=== PATIENT | male | born 1980 | race Caucasian/White ===

== ENCOUNTER 2019-11-26 14:27 | Emergency (ER) | payer OTHER ==
--- NOTE | 2019-11-26 14:49 | TELE ---
HPI Do you have fever,cough or shortness of breath?: Yes - General Reason For Visit: COVID TEST Time Seen by Provider: 11/26/19 14:46 History Source: Patient Exam Limitations: Clinical Condition - History of Present Illness Timing/Duration: unsure 11/26/19 14:46 Patient with no significant past medical history presented [facility] for COVID testing status post being around a group of crowd which had no mask on a few days ago. Patient denies any symptoms himself. Denies cough, fever, shortness of breath. Denies any other symptoms. Patient wants COVID test done as a precautionary Review of Systems - Review of Systems Able to Perform ROS?: Yes Limited Faroese proficient: No Constitutional: No: Chills, Fever, Malaise HEENTM: No: Symptoms Reported, See HPI, Eye Pain, Blurred Vision, Tearing, Recent change in vision, Double Vision, Cataracts, Ear Pain, Ocular Prothesis, Ear Discharge, Nose Pain, Nose Congestion, Tinnitus, Nose Bleeding, Hearing Loss, Throat Pain, Throat Swelling, Mouth Pain, Dental Problems, Difficulty Swallowing, Mouth Swelling, Other Respiratory: No: Symptoms reported, See HPI, Cough, Orthopnea, Shortness of Breath, SOB with Exertion, SOB at Rest, Stridor, Wheezing, Productive cough, Hemoptysis, Other Cardiac (ROS): No: Symptoms Reported, See HPI, Chest Pain, Edema, Irregular Heart Rate, Lightheadedness, Palpitations, Syncope, Chest Tightness, Other ABD/GI: No: Symptoms Reported, Constipated, Diarrhea, Nausea, Vomiting Musculoskeletal: No: Symptoms Reported Integumentary: No: Symptoms Reported, Rash Neurological: No: Symptoms reported, Dizziness All Other Systems: Reviewed and Negative *Physical Exam - Physical Exam General Appearance: Yes: Nourished, Appropriately Dressed. No: Apparent Distress HEENT: positive: Normal ENT Inspection Neck: negative: Supple Respiratory/Chest: negative: Respiratory Distress, Accessory Muscle Use Musculoskeletal: positive: Normal Inspection Extremity: positive: Normal Inspection, Normal Range of Motion Integumentary: positive: Normal Color Neurologic: positive: Fully Oriented, Alert, Normal Mood/Affect, Normal Response, Motor Strength 5/5 - Medical Decision Making 11/26/19 14:47 Patient with no significant past medical history presented to [facility] for COVID testing status post being around a group of crowd which had no mask on a few days ago. Patient denies any symptoms himself. Denies cough, fever, shortness of breath. Denies any other symptoms. Patient wants COVID test done as a precautionary Patient is symptomatic at this time. Discussed with patient self quarantine instructions if symptomatic. COVID tests ordered as per patient's request. Patient to go to [facility] today for testing. Patient stable for discharge Discharge Diagnosis at time of Disposition: Counseled about COVID-19 virus infection - Referrals Follow-up Referral(s): Eva Kohler NP [Primary Care Provider] - - Patient Instructions - Discharge Disposition: HOME Condition at time of Disposition: Stable
== END 2019-11-26 14:49 | disposition home or self-care (01) ==
LOC: JVIRT 14:27
DX: Z03.818 Encounter for observation for suspected exposure to other biological agents ruled out (principal)
CPT/HCPCS: C9803; Q3014-GT; U0003

== ENCOUNTER 2020-01-05 19:59 | Emergency (ER) | payer OTHER | END 2020-01-05 20:35 | disposition home or self-care (01) | LOC: JVIRT 19:59 | DX: Z03.818 Encounter for observation for suspected exposure to other biological agents ruled out (principal) | CPT/HCPCS: C9803; Q3014-GT; U0003 ==

== ENCOUNTER 2020-01-30 11:32 | Emergency (ER) | payer OTHER | END 2020-01-30 11:52 | disposition home or self-care (01) | LOC: JVIRT 11:32 | DX: Z11.59 Encounter for screening for other viral diseases (principal) | CPT/HCPCS: C9803; Q3014-GT; U0003 ==

== ENCOUNTER 2020-03-09 12:36 | Emergency (ER) | payer OTHER | END 2020-03-09 12:57 | disposition home or self-care (01) | LOC: JVIRT 12:36 | DX: Z20.822 Contact with and (suspected) exposure to COVID-19 (principal) | CPT/HCPCS: C9803; G2012-GT; U0003 ==

== ENCOUNTER 2020-06-03 17:02 | Emergency (ER) | payer OTHER ==
[2020-06-05 07:06] LABS: SARS-CoV-2 NAA Not Detected (Not Detected)
== END 2020-06-03 18:40 | disposition home or self-care (01) ==
LOC: JVIRT 17:02
DX: Z20.822 Contact with and (suspected) exposure to COVID-19 (principal)
CPT/HCPCS: C9803; G2251-GT; U0003; U0005

== ENCOUNTER 2020-08-29 17:56 | Emergency (ER) | payer OTHER ==
[2020-08-31 10:08] LABS: SARS-CoV-2 NAA Not Detected (Not Detected)
== END 2020-08-29 19:26 | disposition home or self-care (01) ==
LOC: JVIRT 17:56
DX: Z11.52 Encounter for screening for COVID-19 (principal)
CPT/HCPCS: C9803; Q3014-GT; U0003; U0005